=== PATIENT | male | born 1950 | race Caucasian/White ===

== ENCOUNTER 2018-04-30 09:40 | Emergency (ER) | END 2018-04-30 14:14 | disposition home or self-care (01) ==

== ENCOUNTER 2018-05-02 08:39 | Inpatient (IN) | END 2018-05-03 13:19 | disposition home or self-care (01) | DRG 694 ==

== ENCOUNTER 2019-03-11 04:02 | Emergency (ER) | payer OTHER ==
[~2019-03-11] VITALS: Ht 182.9 cm; Wt 99.4 kg
[~2019-03-11 04:02] MED LIST: AMLO2.5T78 PO; ATOR10TA65 PO; BACL10TA PO; METO10TA92 PO; OMEG100024 PO; WORK NOTE
[2019-03-11 04:05] VITALS: PULSE 80; RESP 19; Ht 182.9 cm; Wt 99.4 kg
--- NOTE | 2019-03-11 04:49 | ERD ---
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 No history of previous episodes. The patient denies cough, no fever, no shortness of breath. ROS All systems reviewed and are negative except as per history of present illness. Medications Home Meds Active Scripts Metoclopramide* (Reglan*) 10 Mg Tablet, 10 MG PO TID PRN for NAUSEA AND/OR VOMITING, #10 TAB Prov:ANIVAL GUEVARA MD 03/11/19 Baclofen* (Baclofen*) 10 Mg Tablet, 10 MG PO Q8, #20 TAB Prov:ANIVAL GUEVARA MD 03/11/19 [Work Note] No Conflict Check Please excuse Mr.Marcos Ferrara attending work from 05/01/2018 to 05/05/2018 due to his medical condition. Thank you. Prov:TRACIE CRUZ NP 05/03/18 Amlodipine Besylate* (Amlodipine Besylate*) 2.5 Mg Tablet, 2.5 MG PO DAILY, #30 TAB Prov:TRACIE CRUZ NP 05/03/18 [place]-3/Dha/Epa/Fish Oil (Fish Oil 1,000 mg Softgel) 1,000 Mg Capsule, 1000 MG PO BID, #60 CAP Prov:TRACIE CRUZ NP 05/03/18 Atorvastatin Calcium (Atorvastatin Calcium) 10 Mg Tablet, 10 MG PO QHS, #30 TAB Prov:TRACIE CRUZ NP 05/03/18 Allergies Allergies: Coded Allergies: No Known Allergy (Unverified , 04/30/18) PMhx/Soc History of Surgery: Yes (Hernia Repair 20 year ago,appentectomy 30 years) Anesthesia Reaction: No Hx Neurological Disorder: No Hx Respiratory Disorders: No Hx Cardiac Disorders: No Hx Psychiatric Problems: No Hx Miscellaneous Medical Probl: Yes (Hypercholesterolemia) Hx Alcohol Use: Yes (only during weekend) Hx Substance Use: No Hx Tobacco Use: No FmHx Family History: No diabetes, No coronary disease Physical Exam Vitals Vital Signs Date Temp Pulse Resp B/P (MAP) Pulse Ox O2 O2 Flow FiO2 Time Delivery Rate 03/11/19 127/88 06:03 (101) 03/11/19 98.6 80 19 154/88 97 04:05 (110) Physical Exam Const: No acute distress, constant hiccups noticed Head: Atraumatic Eyes: Normal Conjunctiva ENT: Normal External Ears, Nose and Mouth. Neck: Full range of motion. No meningismus. Resp: Clear to auscultation bilaterally Cardio: Regular rate and rhythm, no murmurs Abd: Soft, non tender, non distended. Normal bowel sounds Skin: No petechiae or rashes Back: No midline or flank tenderness Ext: No cyanosis, or edema Neur: Awake and alert Psych: Normal Mood and Affect Results 24 hrs Current Medications Medications Dose Sig/Olivia Start Time Status Last (Trade) Ordered Route PRN Stop Time Admin Dose Reason Admin 25 mg ONCE ONCE 03/11/19 DC Chlorpromazin IM 05:30 03/11/19 e 05:30 (Thorazine) Lorazepam 0.5 mg ONCE ONCE 03/11/19 DC 03/11/19 (Ativan) PO 05:30 03/11/19 05:20 05:31 25 mg ONCE ONCE 03/11/19 Cancel Chlorpromazin IV 05:30 03/11/19 e 05:31 (Thorazine) 25 mg ONCE ONCE 03/11/19 DC 03/11/19 Chlorpromazin IM 05:30 03/11/19 05:26 e 05:31 (Thorazine) Procedures/MDM Vital signs stable. Differential diagnosis include but not limited to: Gastritis, gastroenteritis, cholelithiasis, cholecystitis, kidney stones, irritable bowel syndrome, inflammatory bowel syndrome, malabsorption syndrome, food intolerance, medication side effect, pancreatitis, diverticulitis, bowel obstruction. Physical examination and clinical presentation consistent most likely with hiccups During the ED course the patient remained stable, no new complaints. The patient received treatment with chlorpromazine and lorazepam presenting overall improvement of the symptoms. Results and clinical impression discussed with the patient who agrees with management. The patient is stable to be treated outpatient and will be discharged home with a Rx for Reglan and baclofen, some side effects of prescribed medications (headache, rash, nausea, vomiting, diarrhea, drowsiness, habituation, bleeding, hypertension, interactions with other medications) were reviewed. Follow up with the primary care provider in the next 48h is recommended. If symptoms persist, worsen or new symptoms develop, then patient should return to the ED immediately. Instructions explained and given directly by me to the patient with acknowledgment and demonstrated understanding. Disclaimer: Inadvertent spelling and grammatical errors are likely due to EHR/dictation software use and do not reflect on the overall quality of patient care. Also, please note that the electronic time recorded on this note does not necessarily reflect the actual time of the patient encounter. Departure Diagnosis: Primary Impression: Hiccups Condition: Stable Additional Instructions: Thank you very much for allowing us to participate in your care. Your health and safety is our top priority at [facility]. The evaluation in the emergency department has been done to rule out an acute emergency. Chronic, [id number] conditions may have not been evaluated; therefore, you need to follow up with a primary care provider in the next 48h. If symptoms persist, worsen or new symptoms develop, then patient should return to the ED immediately. Call your primary care doctor TOMORROW for an appointment during the next 2-4 days and bring all the information provided. Have prescriptions filled and follow precisely the directions on the label. If the symptoms get worse and your provider is unavailable, return to the Emergency Department immediately. ANIVAL GUEVARA MD Mar 11, 2019 04:49
[2019-03-11] MEDS ORDERED: CHLORPROMAZINE 25 MG INJ IM ONE (05:30)
[2019-03-11] MEDS ORDERED: CHLORPROMAZINE 50 MG INJ IV ONE (05:30)
[2019-03-11] MEDS ORDERED: CHLORPROMAZINE 50 MG INJ IM ONE (05:30)
[2019-03-11] MEDS ORDERED: LORAZEPAM 0.5 MG TAB PO ONE (05:30)
[2019-03-11 06:03] VITALS: BP 127/88
== END 2019-03-11 05:55 | disposition home or self-care (01) ==
LOC: FTE 04:02
DX: R06.6 Hiccough (principal)
CPT/HCPCS: 96372; 99284; J3230